=== PATIENT | male | born 1960 | race Two or more races ===

== ENCOUNTER 2020-11-26 08:00 | Outpatient (CLI) | payer OTHER | END 2020-11-26 08:01 | disposition home or self-care (01) | LOC: LAB 08:00 | PROVIDERS: ATTEND Internal Medicine | DX: R00.2 Palpitations (principal); N40.0 Benign prostatic hyperplasia without lower urinary tract symptoms; E55.9 Vitamin D deficiency, unspecified ==

== ENCOUNTER → 2021-01-07 12:38 | Outpatient (CLI) | payer OTHER | END | disposition home or self-care (01) | LOC: LAB 12:38 | PROVIDERS: ATTEND Internal Medicine | DX: E55.9 Vitamin D deficiency, unspecified (principal); M06.049 Rheumatoid arthritis without rheumatoid factor, unspecified hand ==

== ENCOUNTER 2021-06-29 08:10 | Outpatient (CLI) | payer OTHER | END 2021-06-29 08:11 | disposition home or self-care (01) | LOC: LAB 08:10 | PROVIDERS: ATTEND Internal Medicine | DX: M06.4 Inflammatory polyarthropathy (principal); R73.01 Impaired fasting glucose; E55.9 Vitamin D deficiency, unspecified; N52.9 Male erectile dysfunction, unspecified; R00.2 Palpitations ==